=== PATIENT | male | born 1995 | race Caucasian/White ===

== ENCOUNTER 2018-08-27 17:35 | Emergency (ER) | payer OTHER ==
[~2018-08-27] VITALS: Ht 175.3 cm; Wt 122.3 kg
[~2018-08-27 17:35] MED LIST: HYDR-3498 PO; MED4DP PO; NAPR-985 PO; ONDA4TAB8 PO; RANI150T35 PO
[2018-08-27 18:00] VITALS: Ht 175.3 cm; Wt 122.3 kg
--- NOTE | 2018-08-27 21:51 | ERD ---
ER Documentation Chief Complaint Chief Complaint Complains of an abdscess to left groin and right arm pit x 2 days HPI This is a 22-year-old male presents emergency department with complaints of 2 right groin abscess, right inner upper arm abscess. Stated that these started 2 days ago. Denies headache, head injury, loss of consciousness, dizziness, neck pain, neck stiffness, throat pain, difficulty swallowing, difficulty breathing lying flat, shoulder pain, chest pain, back pain, abdominal pain, nausea, vomiting, constipation, diarrhea, urinary symptoms, loss of bowel and bladder control, trauma, injury, falls, difficulty walking due to pain, numbness or tingling sensation, calf pain, recent travel, recent major surgery in the last 3 weeks, calf pain, recent long travel, recent exposure to any illness, recent antibiotic use in the last 3 months, fever, chills, seizures. Past medical history: Surgical history: Appendectomy. Social: Denies smoking, use of alcoholic beverages, use of illegal drugs. ROS All systems reviewed and are negative except as per history of present illness. Medications Home Meds Active Scripts Ibuprofen* (Motrin*) 800 Mg Tab, 800 MG PO Q6H PRN for PAIN AND OR ELEVATED TEMP, #30 TAB Prov:RANDYSANDHYAROSCOE 08/27/18 Sulfamethoxazole/Trimethoprim* (Bactrim Ds* Tablet) 1 Each Tablet, 1 TAB PO BID for 7 Days, #14 TAB Prov:RANDYSANDHYAROSCOE 08/27/18 Cephalexin* (Keflex*) 500 Mg Capsule, 500 MG PO TID for 7 Days, CAP Prov:[facility] 08/27/18 Ranitidine Hcl* (Zantac*) 150 Mg Tablet, 150 MG PO BID for EPIGASTRIC PAIN, #30 TAB Prov:DAX FLOREZ 07/21/15 Naproxen* (Naprosyn*) 500 Mg Tablet, 500 MG PO BID PRN for PAIN AND/OR INFLAMMATION, #14 TAB Prov:DAX FLOREZ 07/21/15 Ondansetron Hcl* (Zofran*) 4 Mg Tablet, 4 MG PO Q8 PRN for NAUSEA AND/OR VOMITING, #6 TAB Prov:DAX FLOREZ 07/21/15 Hydrocodone Bit-Acetaminophen* ([place]*) 5-325 Mg Tab, 1 TAB PO Q6 PRN for PAIN, #15 TAB Prov:DAX FLOREZ DO 07/21/15 Methylprednisolone* (Medrol* DOSE PACK) 4 Mg/Dose-Pack Tab.ds.pk, 4 MG PO . DIRECTED, #1 PACKET Prov:DAX FLOREZ DO 07/21/15 Allergies Allergies: Coded Allergies: No Known Allergy (Verified , 02/28/14) PMhx/Soc History of Surgery: Yes (APPENDECTOMY) Anesthesia Reaction: No Hx Neurological Disorder: No Hx Respiratory Disorders: No Hx Cardiac Disorders: No Hx Psychiatric Problems: No Hx Miscellaneous Medical Probl: No Hx Alcohol Use: No Hx Substance Use: No Hx Tobacco Use: No Smoking Status: Never smoker Physical Exam Vitals Physical Exam Const: No acute distress Head: Atraumatic Eyes: Normal Conjunctiva ENT: Normal External Ears, Nose and Mouth. Neck: Full range of motion. No meningismus. Resp: Clear to auscultation bilaterally Cardio: Regular rate and rhythm, no murmurs Abd: Soft, non tender, non distended. Normal bowel sounds. Bilateral testicular/scrotal areas no swelling/discoloration/tenderness. Skin: No petechiae or rashes Back: No midline or flank tenderness Ext: No cyanosis, or edema. Right inner upper arm has an abscess measuring approximately 2.5 cm in diameter. No fluctuance. No induration. Right inner thigh/proximal area is an abscess measuring approximately 2.5 cm in diameter. Without fluctuance and without induration. Right inner thigh distal to proximal area is an abscess measuring approximately 2.5 cm in diameter. No fluctuance. No induration. Neur: Awake and alert. No neurological deficit. Psych: Normal Mood and Affect Procedures/MDM Diagnostic tests: Clinical exam. Treatment: Not applicable. Re-evaluation: Not applicable. Differential diagnosis I have low suspicion for deep space infection, necrotizing fasciitis, sepsis. Final diagnosis: Abscess/cellulitis. Prescription: Keflex. Bactrim. Motrin. Follow-up with PCP in the next 24-48 hours. Come back here in the emergency department for any new symptoms or any worsening symptoms. All questions and concerns were answered. Patient and family members verbalized understanding and agreed with plan of care. Hemodynamically stable on discharge. Departure Diagnosis: Primary Impression: Abscess Additional Impression: Cellulitis Condition: Stable Additional Instructions: Follow-up with PCP in the next 24-48 hours. Come back here in the emergency department for any new symptoms or any worsening symptoms. ROSCOE IRBY Aug 27, 2018 21:51
[2018-08-27] MEDS ORDERED: IBUP800T48 PO (21:52)
[2018-08-27] MEDS ORDERED: CEPH-443 PO (21:52)
[2018-08-27] MEDS ORDERED: SULF1TAB31 PO (21:52)
[2018-08-27 22:31] VITALS: BP 155/95; PULSE 60; RESP 18
== END 2018-08-27 22:33 | disposition home or self-care (01) ==
LOC: FTE 17:35
DX: L02.413 Cutaneous abscess of right upper limb (principal); L02.415 Cutaneous abscess of right lower limb; L03.90 Cellulitis, unspecified
CPT/HCPCS: 99283